=== PATIENT | female | born 1995 | race Caucasian/White ===

== ENCOUNTER 2017-03-14 19:12 | Emergency (ER) | payer OTHER ==
[2017-03-14 20:35] LABS: Appearance,Urine Cloudy (Clear); Bacteria,Urine Rare /hpf; Bilirubin,Urine Negative (Negative); Glucose,Urine (UA) Negative (Negative); Ketones,Urine Negative (Negative); Leukocyte Esterase,Urine Small (Negative); Mucus,Urine Rare /hpf; Nitrite,Urine Negative (Negative); Particle Count 3450; Protein,Urine Negative (Negative); RBC,Urine 1 /hpf (0-5); Specific Gravity,Urine 1.015 (1.001-1.035); Squamous Epithelial Cell,Urine 1 /hpf (0-4); UA Billing (MACRO vs. MICRO) MICRO; Urobilinogen,Urine <2.0 mg/dL (<2.0); WBC,Urine 1 /hpf (0-5)
[2017-03-14] MEDS ORDERED: FLUCONAZOLE 150 MG TAB PO STA (20:36)
--- NOTE | 2017-03-14 20:37 | ED ---
Female Urogenital HPI - General Chief complaint: Urogenital Stated complaint: yeast infection Time Seen by Provider: 03/14/17 19:21 Source: patient Mode of arrival: ambulatory Limitations: no limitations - Related Data Home Medications Medication Instructions Recorded Confirmed ALPRAZolam [Xanax] 0.25 mg PO DAILY PRN 03/14/17 03/14/17 Dexamethasone See Taper PO DAILY 03/14/17 03/14/17 Previous Rx's Medication Instructions Recorded Fluconazole [Diflucan] 150 mg PO ONCE #3 tab 03/14/17 Allergies Allergy/AdvReac Type Severity Reaction Status Date / Time No Known Allergies Allergy Verified 05/22/15 12:19 Review of Systems ROS Statement: Those systems with pertinent positive or pertinent negative responses have been documented in the HPI. ROS Other: All systems not noted in ROS Statement are negative. Past Medical History Past Medical History: No Reported History History of Any Multi-Drug Resistant Organisms: None Reported Past Surgical History: Appendectomy, Ear Surgery Additional Past Surgical History / Comment(s): eustachian tubes at age 1 Past Anesthesia/Blood Transfusion Reactions: No Reported Reaction Past Psychological History: Anxiety Smoking Status: Current every day smoker Past Alcohol Use History: Rare Past Drug Use History: None Reported General Exam Limitations: no limitations Course Vital Signs 03/14/17 19:13 Temperature 98.5 F Pulse Rate 96 Respiratory 18 Rate Blood Pressure 118/76 O2 Sat by Pulse 97 Oximetry Medical Decision Making - Lab Data Lab Results 03/14/17 03/14/17 Range/Units 20:00 20:00 Urine Color Yellow Urine Appearance Cloudy H (Clear) Urine pH 5.0 (5.0-8.0) Ur Specific [place] 1.015 (1.001-1.035) Urine Protein Negative (Negative) Urine Glucose (UA) Negative (Negative) Urine Ketones Negative (Negative) Urine Blood Negative (Negative) Urine Nitrite Negative (Negative) Urine Bilirubin Negative (Negative) Urine Urobilinogen <2.0 (<2.0) mg/dL Ur Leukocyte Esterase Small H (Negative) Urine RBC 1 (0-5) /hpf Urine WBC 1 (0-5) /hpf Ur Squamous Epith Cells 1 (0-4) /hpf Urine Bacteria Rare H (None) /hpf Hyaline Casts 8 H (0-2) /lpf Urine Mucus Rare H (None) /hpf Urine HCG, Qual Not Detected (Not Detectd) Disposition Clinical Impression: Yeast infection Disposition: HOME SELF-CARE Condition: Good Instructions: Vulvovaginal Candidiasis (ED) Additional Instructions: Patient advised to follow-up with her primary care physician. Take the medication as prescribed. Return to the emergency department if any alarming signs or symptoms occur. Prescriptions: Fluconazole [Diflucan] 150 mg PO ONCE #3 tab Referrals: Roel Cortez Jr, DO [Primary Care Provider] - 1-2 days Time of Disposition: 20:36
[2017-03-14 21:00] VITALS: BP 120/56; PULSE 67; RESP 16; TEMP 97.8
== END 2017-03-14 21:24 | disposition home or self-care (01) ==
LOC: EC 19:12
DX: B37.9 Candidiasis, unspecified (principal); F41.9 Anxiety disorder, unspecified; Z79.899 Other long term (current) drug therapy; F17.200 Nicotine dependence, unspecified, uncomplicated
CPT/HCPCS: 81001; 81025; 87070; 87205; 87491; 87591; 87808; 99283

== ENCOUNTER → 2017-05-17 | Outpatient (CLI) | payer OTHER | END | disposition home or self-care (01) | LOC: CPPFTMAIN 10:50 | PROVIDERS: ATTEND Family Medicine | DX: R06.02 Shortness of breath (principal) | CPT/HCPCS: 94060; 94726; 94729 ==

== ENCOUNTER → 2017-06-29 | Outpatient (CLI) | payer OTHER ==
--- NOTE | 2017-06-29 14:47 | FL ---
EXAMINATION TYPE: FL barium swallow DATE OF EXAM: 06/29/2017 CLINICAL HISTORY: Mid esophageal dysphagia. TECHNIQUE: A double contrast esophagram is performed utilizing air and barium. A total of 2.9 minut es of fluoroscopic time was utilized during procedure with 60 images saved. COMPARISON: None FINDINGS: The esophagus shows normal motility and emptying into the stomach. No evidence of hiatal h ernia or stricture noted. Minimal gastroesophageal reflux was seen during real time performance of th is study in the gravity independent position with utilization of the Valsalva maneuver to the level o f the distal third of the thoracic esophagus. IMPRESSION: Mild gastroesophageal reflux to the level of the distal third of thoracic esophagus. No focal strictu re.
== END | disposition home or self-care (01) ==
LOC: RADFLWHC 09:34
PROVIDERS: ATTEND Family Medicine
DX: K21.9 Gastro-esophageal reflux disease without esophagitis (principal); R13.10 Dysphagia, unspecified; Z88.8 Allergy status to other drugs, medicaments and biological substances
CPT/HCPCS: 74220

== ENCOUNTER 2018-06-24 12:12 | Emergency (ER) | payer OTHER ==
[2018-06-24 12:34] VITALS: BP 107/72; PULSE 80; RESP 18; TEMP 98.1
--- NOTE | 2018-06-24 12:43 | ED ---
Psych HPI - General Chief Complaint: Psychiatric Symptoms Stated Complaint: depression Time Seen by Provider: 06/24/18 12:35 Source: patient, RN notes reviewed Mode of arrival: ambulatory Limitations: no limitations - History of Present Illness Initial Comments: 22-year-old female presents emergency Department chief complaint of depression. Patient states she's had ongoing depression since age 12. Patient states that she's been multiple medications no current medications other than Xanax. Patient states that she is very depressed but not suicidal. She denies any homicidal ideation, drug use, alcohol abuse. Patient states that she just cannot physically get out of bed without been sad. Patient states she has an appointment with Dr. Rick which on Tuesday but states that she cannot tolerate her symptoms anymore. Denies any physical complaints. - Related Data Home Medications Medication Instructions Recorded Confirmed No Known Home Medications 06/24/18 06/24/18 Allergies Allergy/AdvReac Type Severity Reaction Status Date / Time No Known Allergies Allergy Verified 06/24/18 13:43 Review of Systems ROS Statement: Those systems with pertinent positive or pertinent negative responses have been documented in the HPI. ROS Other: All systems not noted in ROS Statement are negative. Past Medical History Past Medical History: No Reported History History of Any Multi-Drug Resistant Organisms: None Reported Past Surgical History: Appendectomy, Ear Surgery Additional Past Surgical History / Comment(s): eustachian tubes at age 1 Past Anesthesia/Blood Transfusion Reactions: No Reported Reaction Past Psychological History: Anxiety, Depression Smoking Status: Current every day smoker Past Alcohol Use History: Rare Past Drug Use History: None Reported General Exam Limitations: no limitations General appearance: alert, in no apparent distress Head exam: Present: atraumatic, normocephalic, normal inspection Eye exam: Present: normal appearance, PERRL, EOMI. Absent: scleral icterus, conjunctival injection, periorbital swelling ENT exam: Present: normal exam, normal oropharynx, mucous membranes moist Neck exam: Present: normal inspection, full ROM. Absent: tenderness, meningismus, lymphadenopathy Respiratory exam: Present: normal lung sounds bilaterally. Absent: respiratory distress, wheezes, rales, rhonchi, stridor Cardiovascular Exam: Present: regular rate, normal rhythm, normal heart sounds. Absent: systolic murmur, diastolic murmur, rubs, gallop, clicks Neurological exam: Present: alert, oriented X3, CN II-XII intact Psychiatric exam: Present: depressed Course Vital Signs 06/24/18 12:31 Temperature 98.1 F Pulse Rate 80 Respiratory 18 Rate Blood Pressure 107/72 O2 Sat by Pulse 99 Oximetry Medical Decision Making - Medical Decision Making 22-year-old female presented for depression. Patient was evaluated by EPS and case discussed with on-call psychiatrist who does not recommend inpatient therapy. Patient is not suicidal or homicidal. She does have good support group at home and she has follow-up on Tuesday with her psychiatrist. Return parameters were discussed. - Lab Data Lab Results 06/24/18 06/24/18 Range/Units 12:38 12:38 Urine HCG, Qual Not Detected (Not Detectd) Urine Opiates Screen Not Detected (NotDetected) Ur Oxycodone Screen Not Detected (NotDetected) Urine Methadone Screen Not Detected (NotDetected) Ur Propoxyphene Screen Not Detected (NotDetected) Ur Barbiturates Screen Not Detected (NotDetected) U Tricyclic Antidepress Not Detected (NotDetected) Ur Phencyclidine Scrn Not Detected (NotDetected) Ur Amphetamines Screen Detected H (NotDetected) U Methamphetamines Scrn Not Detected (NotDetected) U Benzodiazepines Scrn Not Detected (NotDetected) Urine Cocaine Screen Not Detected (NotDetected) U Marijuana (THC) Screen Not Detected (NotDetected) Disposition Clinical Impression: Depression Disposition: HOME SELF-CARE Condition: Stable Instructions: Depression (ED) Additional Instructions: Please return to the Emergency Department if symptoms worsen or any other concerns. Is patient prescribed a controlled substance at d/c from ED?: No Referrals: Roel Cortez Jr, DO [Primary Care Provider] - 1-2 days Time of Disposition: 14:17
[2018-06-24 13:49] LABS: Amphetamine Screen,Urine Detected (NotDetected); Barbiturate Screen,Urine Not Detected (NotDetected); Benzodiazepines Screen,Urine Not Detected (NotDetected); Cocaine Screen,Urine Not Detected (NotDetected); Methadone Screen, Urine Not Detected (NotDetected); Opiate Screen,Urine Not Detected (NotDetected); Oxycodone Screen, Urine Not Detected (NotDetected); Phencyclidine Screen,Urine Not Detected (NotDetected); Tricyclic Antidepressant,Urine Not Detected (NotDetected); Urn Cannabinoid Scrn Not Detected (NotDetected)
== END 2018-06-24 14:41 | disposition home or self-care (01) ==
LOC: EC 12:12
DX: F32.9 Major depressive disorder, single episode, unspecified (principal); F41.9 Anxiety disorder, unspecified; F17.200 Nicotine dependence, unspecified, uncomplicated; Z90.49 Acquired absence of other specified parts of digestive tract; Z96.22 Myringotomy tube(s) status
CPT/HCPCS: 80306; 81025; 82075; 99284

== ENCOUNTER 2018-10-21 20:13 | Emergency (ER) | payer OTHER ==
[2018-10-21 20:38] VITALS: RESP 18; TEMP 98.2
[2018-10-21] MEDS ORDERED: DIPH,PERTUS(ACELL)TETVAC-LF 0.5 ML VIAL IM ONE (20:38)
[2018-10-21] MEDS ORDERED: ACETAMINOPHEN TAB 325 MG TAB PO STA (20:38)
[2018-10-21] MEDS ORDERED: ACETAMINOPHEN ORAL SUSP 160 MG/5 ML CUP PO ONE (21:00)
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
--- NOTE | 2018-10-21 22:34 | CT ---
EXAM: CT Head Without Intravenous Contrast CLINICAL HISTORY: Pain TECHNIQUE: Axial computed tomography images of the head/brain without intravenous contrast. DLP is 1181.5 mGy-cm. This CT exam was performed using one or more of the following dose reduction techniques: automated exposure control, adjustment of the mA and/or kV according to patient size, and/or use of iterative reconstruction technique. COMPARISON: No relevant prior studies available. FINDINGS: Brain: Unremarkable. No hemorrhage. No significant white matter disease. No edema. Ventricles: Unremarkable. No ventriculomegaly. Bones/joints: Unremarkable. No acute fracture. Soft tissues: Unremarkable. Sinuses: Unremarkable as visualized. No acute sinusitis. Mastoid air cells: Unremarkable as visualized. No mastoid effusion. IMPRESSION: Unremarkable CT brain EXAM: CT Cervical Spine Without Intravenous Contrast CLINICAL HISTORY: Pain TECHNIQUE: Axial computed tomography images of the cervical spine without intravenous contrast. DLP is 1181.5 mGy-cm. This CT exam was performed using one or more of the following dose reduction techniques: automated exposure control, adjustment of the mA and/or kV according to patient size, and/or use of iterative reconstruction technique. Coronal and sagittal reformatted images were created and reviewed. COMPARISON: No relevant prior studies available. FINDINGS: Vertebrae: Unremarkable. No acute fracture. Discs/spinal canal/neural foramina: No acute findings. No spinal canal stenosis. Soft tissues: Unremarkable. IMPRESSION: No evidence for fracture or malalignment of the cervical spine
[2018-10-21 23:13] VITALS: BP 111/71; PULSE 78
== END 2018-10-21 23:12 | disposition home or self-care (01) ==
LOC: EC 20:13
DX: S01.01XA Laceration without foreign body of scalp, initial encounter (principal); F10.129 Alcohol abuse with intoxication, unspecified; S80.211A Abrasion, right knee, initial encounter; Z23 Encounter for immunization; F17.200 Nicotine dependence, unspecified, uncomplicated; W18.09XA Striking against other object with subsequent fall, initial encounter
CPT/HCPCS: 12002; 70450; 72125; 81025; 90471; 90715; 99284

== ENCOUNTER 2021-03-14 17:17 | Emergency (ER) | payer OTHER ==
[2021-03-14 17:21] VITALS: RESP 18; TEMP 98.9
[2021-03-14] MEDS ORDERED: PANTOPRAZOLE 40 MG/10 ML VIAL IVP STA (17:45)
[2021-03-14] MEDS ORDERED: SODIUM CHLORIDE 0.9% 1,000 ML IV STA (17:45)
[2021-03-14] MEDS ORDERED: KETOROLAC 15 MG/ML 1 ML VIAL IVP STA (17:45)
[2021-03-14 18:13] LABS: Basophils % (A) 1 %; Eosinophils # (A) 0.2 k/uL (0-0.7); Eosinophils % (A) 4 %; HCT 46.8 % (34.0-46.0); HGB 15.5 gm/dL (11.4-16.0); Lymphocytes # (A) 2.2 k/uL (1.0-4.8); Lymphocytes % (A) 40 %; MCH 30.4 pg (25.0-35.0); MCHC 33.2 g/dL (31.0-37.0); MCV 91.7 fL (80.0-100.0); Mean Platelet Volume 7.3; Monocytes # (A) 0.2 k/uL (0-1.0); Monocytes % (A) 4 %; Neutrophils # (A) 2.7 k/uL (1.3-7.7); Neutrophils % (A) 49 %; Platelet Count 262 k/uL (150-450); RBC 5.11 m/uL (3.80-5.40); RDW 12.6 % (11.5-15.5); WBC 5.5 k/uL (3.8-10.6)
[2021-03-14 18:27] LABS: ALT 13 U/L (4-34); AST 26 U/L (14-36); African American GFR (CKD) >90 (>60 ml/min/1.73 sqM); Albumin 4.7 g/dL (3.5-5.0); Alkaline Phosphatase 31 U/L (38-126); Anion Gap 9 mmol/L; Blood Urea Nitrogen 13 mg/dL (7-17); Calcium 10.2 mg/dL (8.4-10.2); Carbon Dioxide 25 mmol/L (22-30); Chloride 106 mmol/L (98-107); Glucose 101 mg/dL (74-99); Lipase 105 U/L (23-300); Non-African American GFR(CKD) >90 (>60 ml/min/1.73 sqM); Potassium 4.7 mmol/L (3.5-5.1); Sodium 140 mmol/L (137-145); Total Bilirubin 0.5 mg/dL (0.2-1.3); Total Protein 7.5 g/dL (6.3-8.2)
--- NOTE | 2021-03-14 18:47 | US ---
EXAMINATION TYPE: US gallbladder DATE OF EXAM: 03/14/2021 COMPARISON: NONE CLINICAL HISTORY: + rock. Pain patient having a panic attack unable to role or hold breath. EXAM MEASUREMENTS: Liver Length: 13.0 cm Gallbladder Wall: .2 cm CBD: .3 cm Right Kidney: 10.1 x 3.7 x 3.7 cm Pancreas: wnl Liver: wnl Gallbladder: No stones seen Evidence for sonographic Rock's sign: No CBD: wnl Right Kidney: wnl IMPRESSION: Negative exam. No gallstones or dilated ducts.
[2021-03-14 18:56] LABS: HCG,Qualitative Serum Not Detected
--- NOTE | 2021-03-14 19:15 | XR ---
EXAMINATION TYPE: XR KUB DATE OF EXAM: 03/14/2021 COMPARISON: NONE HISTORY: Abdominal pain TECHNIQUE: 2 views FINDINGS: Bowel gas pattern is normal. There is no sign of intestinal obstruction or pneumoperitoneum . Fecal pattern is normal. There is no sign of a mass. Lung bases are clear. There are no pathologic calcifications over the kidneys. Bony structures are intact. IMPRESSION: Nonacute abdomen.
--- NOTE | 2021-03-14 19:24 | ED ---
Abdominal Pain HPI - General Chief Complaint: Abdominal Pain Stated Complaint: Abd pain Time Seen by Provider: 03/14/21 17:27 Source: patient Mode of arrival: ambulatory Limitations: no limitations - History of Present Illness Initial Comments: 25-year-old female presents to the emergency room with a chief complaint of abdominal pain. Patient reports the symptoms abdominal for the past several months. States the pain is usually postprandial but that does not always appear to be the case. States it is on the left side of the abdomen. She reports occasional nausea but denies any vomiting diarrhea constipation. States she spoke to her primary care physician who ordered an x-ray but she is yet to obtain it. Patient denies any urinary or vaginal symptoms. She denies any fevers or chills. Denies any possibility for . Denies hematuria, hematochezia or melena. No previous abdominal surgical history. - Related Data Previous Rx's Medication Instructions Recorded Ondansetron Odt [Zofran Odt] 4 mg PO Q8HR PRN #10 tab 03/14/21 Allergies Allergy/AdvReac Type Severity Reaction Status Date / Time No Known Allergies Allergy Verified 03/14/21 17:21 Review of Systems ROS Statement: Those systems with pertinent positive or pertinent negative responses have been documented in the HPI. ROS Other: All systems not noted in ROS Statement are negative. Past Medical History Past Medical History: No Reported History History of Any Multi-Drug Resistant Organisms: None Reported Past Surgical History: Appendectomy, Ear Surgery Additional Past Surgical History / Comment(s): eustachian tubes at age 1 Past Anesthesia/Blood Transfusion Reactions: No Reported Reaction Past Psychological History: Anxiety, Depression Smoking Status: Never smoker Past Alcohol Use History: Rare Past Drug Use History: None Reported General Exam Limitations: no limitations General appearance: alert, in no apparent distress Head exam: Present: atraumatic, normocephalic, normal inspection Eye exam: Present: normal appearance, PERRL, EOMI Pupils: Present: normal accommodation ENT exam: Present: normal exam, normal oropharynx, mucous membranes moist, TM's normal bilaterally, normal external ear exam Neck exam: Present: normal inspection, full ROM. Absent: tenderness, lymph adenopathy Respiratory exam: Present: normal lung sounds bilaterally. Absent: respiratory distress, wheezes, rales, rhonchi, stridor Cardiovascular Exam: Present: regular rate, normal rhythm, normal heart sounds. Absent: systolic murmur GI/Abdominal exam: Present: soft, tenderness (Positive Rock sign., Left-sided abdominal tenderness). Absent: distended, guarding, rebound, rigid Extremities exam: Present: normal inspection, full ROM, normal capillary refill. Absent: tenderness, pedal edema, joint swelling Back exam: Present: normal inspection, full ROM. Absent: tenderness Neurological exam: Present: alert, oriented X3 Psychiatric exam: Present: normal affect, normal mood Skin exam: Present: warm, dry, intact, normal color Course Vital Signs 03/14/21 17:17 Temperature 98.9 F Pulse Rate 96 Respiratory 18 Rate Blood Pressure 111/75 O2 Sat by Pulse 100 Oximetry Medical Decision Making - Medical Decision Making 25-year-old male presents to emergency department with a chief complaint of abdominal pain. On physical examination, mild left-sided abdominal tenderness. She did however have positive Rock sign. Patient was given IV fluids, antiemetics and Protonix. On reevaluation, she reports improving symptoms. She requested x-ray per her primary care. This was obtained and showed no acute findings. Ultrasound of the gallbladder is also unremarkable. Laboratory work shows nonacute findings. She is not . She was not able to give a urine sample. I advised to follow-up with a primary care physician and GI specialist. We'll discharge her Zofran. Strict return parameters were thoroughly discussed the patient is understanding and agreeable. - Lab Data Result diagrams: 03/14/21 17:59 03/14/21 17:59 Lab Results 03/14/21 03/14/21 Range/Units 17:59 17:59 WBC 5.5 (3.8-10.6) k/uL RBC 5.11 (3.80-5.40) m/uL Hgb 15.5 (11.4-16.0) gm/dL Hct 46.8 H (34.0-46.0) % MCV 91.7 (80.0-100.0) fL MCH 30.4 (25.0-35.0) pg MCHC 33.2 (31.0-37.0) g/dL RDW 12.6 (11.5-15.5) % Plt Count 262 (150-450) k/uL MPV 7.3 Neutrophils % 49 % Lymphocytes % 40 % Monocytes % 4 % Eosinophils % 4 % Basophils % 1 % Neutrophils # 2.7 (1.3-7.7) k/uL Lymphocytes # 2.2 (1.0-4.8) k/uL Monocytes # 0.2 (0-1.0) k/uL Eosinophils # 0.2 (0-0.7) k/uL Basophils # 0.0 (0-0.2) k/uL Sodium 140 (137-145) mmol/L Potassium 4.7 (3.5-5.1) mmol/L Chloride 106 (98-107) mmol/L Carbon Dioxide 25 (22-30) mmol/L Anion Gap 9 mmol/L BUN 13 (7-17) mg/dL Creatinine 0.55 (0.52-1.04) mg/dL Est GFR (CKD-EPI)AfAm >90 (>60 ml/min/1.73 sqM) Est GFR (CKD-EPI)NonAf >90 (>60 ml/min/1.73 sqM) Glucose 101 H (74-99) mg/dL Calcium 10.2 (8.4-10.2) mg/dL Total Bilirubin 0.5 (0.2-1.3) mg/dL AST 26 (14-36) U/L ALT 13 (4-34) U/L Alkaline Phosphatase 31 L (38-126) U/L Total Protein 7.5 (6.3-8.2) g/dL Albumin 4.7 (3.5-5.0) g/dL Lipase 105 (23-300) U/L HCG, Qual Not Detected Disposition Clinical Impression: Abdominal pain Disposition: HOME SELF-CARE Condition: Stable Instructions (If sedation given, give patient instructions): Abdominal Pain (ED) Additional Instructions: Please return to the Emergency Department if symptoms worsen or any other concer ns. Follow up with a specialist. Prescriptions: Ondansetron Odt [Zofran Odt] 4 mg PO Q8HR PRN #10 tab PRN Reason: Nausea Is patient prescribed a controlled substance at d/c from ED?: No Referrals: Lukas Olsen MD [Primary Care Provider] - 1-2 days Anna Ryder MD [STAFF PHYSICIAN] - 1-2 days Time of Disposition: 19:31
[2021-03-14 20:13] VITALS: BP 101/59; PULSE 68
== END 2021-03-14 20:13 | disposition home or self-care (01) ==
LOC: EC 17:17
DX: R10.9 Unspecified abdominal pain (principal); R11.0 Nausea; Z90.89 Acquired absence of other organs
CPT/HCPCS: 80053; 83690; 85025; 84703; 74018; 76705; 99284; 96374; 96375; 96361; J1885; C9113

== ENCOUNTER → 2025-01-22 | Outpatient (CLI) | payer OTHER ==
--- NOTE | 2025-01-22 12:00 | CT ---
EXAMINATION TYPE: CT brain wo con DATE OF EXAM: 01/22/2025 11:12 AM COMPARISON: 10/21/2018. CLINICAL INDICATION: Female, 29 years old with history of R51.9 Headache, headache, pain behind and a estee right ear TECHNIQUE: Brain: Axial CT images of the brain were obtained with coronal and sagittal reformats created and rev iewed. Contrast used: None. Oral contrast used: None. CT DLP: 978.2 mGycm, Automated exposure control for dose reduction was used. FINDINGS: Brain: Extra-axial spaces: No abnormal extra-axial fluid collections. Ventricular system: Within normal limits Cerebral parenchyma: No acute intraparenchymal hemorrhage or mass effect. The bingham-white junction is well differentiated. Cerebellum: Unremarkable. Mass effect: No evidence of midline shift. Intracranial vasculature: unremarkable Soft tissues: No findings of venous tissues around the right year Calvarium/osseous structures: No depressed skull fracture. Paranasal sinuses and mastoid air cells: Mild scattered paranasal sinus disease. Visualized orbits: Orbital contents are intact. IMPRESSION: 1. No acute intracranial process. 2. No finding to correlate with right ear pain. [facility], , 01/22/2025 11:58 AM
== END | disposition home or self-care (01) ==
LOC: RADCTMAIN 10:52
PROVIDERS: ATTEND Family Medicine
DX: S09.8XXA Other specified injuries of head, initial encounter (principal); H53.9 Unspecified visual disturbance; H91.11 Presbycusis, right ear; R42 Dizziness and giddiness
CPT/HCPCS: 70450